=== PATIENT | female | born 1940 | race Caucasian/White ===

== ENCOUNTER 2017-07-21 13:12 | Observation (INO) ==
[2017-07-21] MEDS ORDERED: SODIUM CHLORIDE 0.9% 1,000 ML IV STA (13:36)
--- NOTE | 2017-07-21 13:55 | XRay Report ---
Portable chest. Indication: Shortness of breath. Comparison: October 18, 2015. The heart is normal in size. There is calcific plaque present within the aortic knob. The pulmonary vasculature is normal. The lung arita are clear. With peak hardware is present in the left humerus. Healed rib fractures are noted on the right. Impression: No acute abnormality. PROCEDURE INTERPRETED AT [facility] DEPARTMENT OF RADIOLOGY Final Report Signed by: Dr. Princess Catalan
[2017-07-21 14:07] LABS: Basophils # 0.1 10*3/uL (0.0-0.2); Basophils % 0.7 % (0.0-0.8); Eosinophils # 0.1 10*3/uL (0.0-0.87); Eosinophils % 0.7 % (0.00-10.9); Hematocrit 28.4 VOL% (35.7-47.0); Hemoglobin 8.9 GM/DL (12.0-16.0); Immature Granulocytes % 0.4 %; Immature Granulocytes Absolute 0.03 #; Lymphocytes # 0.9 10*3/uL (1.4-4.0); Lymphocytes % 12.4 % (21.3-54.2); Mean Corpuscular HGB Conc 31.3 GM/DL (32-36); Mean Corpuscular Hemoglobin 27 PG (27-34); Mean Corpuscular Volume 85.3 FL (87-102); Mean Platelet Volume 10.6 FL (9.6-12.0); Monocytes # 0.8 10*3/uL (0.11-0.8); Monocytes % 11.2 % (1.7-12.7); Neutrophils # 5.6 10*3/uL (1.4-7.4); Neutrophils % 74.6 % (38.7-73.9); Platelet Count 209 T/CUMM (130-400); Red Blood Count 3.33 MC/CUMM (3.8-5.5); Red Cell Distribution Width 15.5 % (9.3-17.3); White Blood Count 7.5 T/CUMM (4-12)
[2017-07-21 14:14] LABS: PT Patient Result 10.2 SECS
--- NOTE | 2017-07-21 14:24 | EKG Report ---
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
[2017-07-21 14:37] LABS: Albumin 3.8 G/DL (3.4-5.0); Bilirubin,Total 0.8 MG/DL (0.2-1.0); Magnesium 1.8 MG/DL (1.8-2.4); Osmolality,Calculated 275.5 MOS/KG (273-304); Potassium 3.4 MMOL/L (3.5-5.1); Total Protein 6.7 G/DL (6.4-8.3); Troponin I Only 0.023 NG/ML (0.00-0.045)
[2017-07-21] MEDS ORDERED: ACETAMINOPHEN 325 MG TABLET PO PRN (14:52)
[2017-07-21] MEDS ORDERED: ONDANSETRON 4 MG/2 ML VIAL IV PRN (14:52)
[2017-07-21] MEDS ORDERED: SODIUM CHLORIDE 0.9% 1,000 ML IV SCH (15:00)
--- NOTE | 2017-07-21 15:01 | Emergency Department Note ---
Radha Shipman Brittany, am scribing for, and in the presence of, Reginald Herman MD 13:52. Virgil Shipman Phillip K, MD, personally performed the services described in this documentation, ascribed by Eloisa Garcia in my presence, and it is both accurate and complete [id number] . Arrival - Arrival Chief Complaint: Arrhythmia/Palpitations ED Nursing Triage Note: c/o Having increase heart rate - that started apx. 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 1130 , states she was in the kitchen cooking when this started., denies nasuea., denies having SOB., + diaphresis Mode of Arrival: Stretcher Limitations: No Limitations Source: Patient - History of Present Illness HPI Narrative: This is a 77 y/o white female,who presents to the ED with c/o SOB which started yesterday. She states yesterday after a meeting she became SOB. She denies any CP at that time. She notes once she got home the SOB resolved. She reports earlier today she became SOB again. She notes diaphoresis today. She denies a cough. She denies a fever. She notes 4 days ago, she noticed fresh blood in her stool and then the next days she noticed dark blood in her stool. She denies any abdominal pain. Pt has no other complaints/pain in the ED at this time. Pt has a PMhx asthma, chronic bronchitis, bladder problems, and ovarian cancer. Pt has had an eye surgery, appendectomy, orthopedic sugery, hysterectomy, and gynecological surgery. Pt denies a family medical hx. Pt is a former smoker and drinks occasionally. Onset (ago): day(s) (Started yesterday) Consistency: constant Severity: moderate Allergies/Adverse Reactions: Allergies Allergy/AdvReac Type Severity Reaction Status Date / Time codeine Allergy ITCHING Verified 08/02/15 10:57 Home Medications: Home Medications Medication Instructions Recorded Confirmed Type Albuterol Sulfate [Proair HFA] 2 puffs INH BID PRN 08/02/15 10/18/15 History Losartan [Cozaar] 25 mg PO DAILY #90 tablet 10/20/15 Rx Magnesium Chloride [Slow Mag] 64 mg PO DAILY #90 tablet 10/20/15 Rx Review of System - Review of System 12 point system: reviewed and no additional remarkable complaints except as stated - Review of System Constitutional: Present: diaphoresis. Absent: fever Respiratory: Absent: cough Cardiovascular: Present: chest pain, other (Tachycardia ). Absent: dyspnea on exertion Gastrointestinal: Present: hematochezia Medical,Surgical,& Family Hx - Medical History Neurology: No history of: Seizures Respiratory: History of: Asthma, Bronchitis (Chronic ) Genitourinary: History of: Bladder Problem (bladder sling) Musculoskeletal: History of: Musculoskeletal Problems (fx left humerus, fx foot) Reproductive: History of: Reproductive Problems (OVARIAN CANCER) Other: History of: Cancer (ovarian) - Surgical History HEENT Surgeries: Surgical HX of: Eye Surgery (cataract) Abdominal Surgeries: Surgical HX of: Appendectomy Reproductive Surgeries: Surgical HX of;: Gynecologic Surgery (ovarian ca), Hysterectomy Orthopedic Surgeries: Surgical HX of;: Orthopedic Surgery (orif left humerus 04/12, bunionectomy) - Family History Family History: Reports;: Family Heart Disease (father) - Social History Smoking Status: Former smoker Frequency of Alcohol Use: Occasionally Type of Drug Use: None Exam Vital Signs: Vital Signs Temperature 98.9 F 07/21/17 13:16 Pulse Rate 131 H 07/21/17 13:22 Respiratory Rate 20 07/21/17 13:22 Blood Pressure 137/76 07/21/17 13:22 O2 Sat by Pulse Oximetry 99 07/21/17 13:22 - General General appearance: alert, in no apparent distress - Head Head exam: Present: atraumatic, normocephalic, normal inspection - Eye Eye exam: Present: PERRL, EOMI. Absent: normal appearance (Pale conjunctiva), nystagmus, miosis, mydriasis - ENT ENT exam: Present: other (Pale mucous membranes) - Neck Neck exam: Present: full ROM, trachea midline. Absent: tenderness - Chest Chest inspection: Present: symmetric chest wall rise. Absent: tenderness - Respiratory Respiratory exam: Present: normal lung sounds bilaterally. Absent: rales, respiratory distress, rhonchi, stridor, wheezes - Cardiovascular Cardiovascular exam: Present: tachycardia, irregular rhythm, normal heart sounds. Absent: regular rate, normal rhythm, murmur, rubs, gallop, clicks, JVD - Abdominal Exam Abdominal exam: Present: soft, normal bowel sounds. Absent: tenderness - Rectal Exam Rectal exam: Present: heme (+) stool, other (Yellow stool ) - Extremities Exam Extremities exam: Present: normal inspection, full ROM, normal capillary refill. Absent: tenderness, pedal edema - Back Exam Back exam: Present: normal inspection, full ROM. Absent: tenderness, muscle spasm, rashes - Neurological Exam Neurological exam: Present: alert, oriented X3, CN II-XII intact. Absent: motor sensory deficit - Psychiatric Psychiatric exam: Present: normal affect, normal mood. Absent: depressed, agitated, anxious, flat affect - Skin Skin exam: Present: warm, dry, intact, normal color. Absent: rash, cyanosis, diaphoresis Course Course Narrative: Patient discussed with Dr. Marcano Results - Labs CBC & BMP: 07/21/17 13:55 07/21/17 13:55 Lab Results: I have reviewed the patients labs Labs: Laboratory Tests 07/21/17 07/21/17 07/21/17 13:55 13:55 13:55 WBC 7.5 RBC 3.33 L Hgb 8.9 L Hct 28.4 L MCV 85.3 L MCH 27 MCHC 31.3 L RDW 15.5 Plt Count 209 MPV 10.6 Neut % (Auto) 74.6 H Lymph % (Auto) 12.4 L [place] % (Auto) 11.2 Eos % (Auto) 0.7 Baso % (Auto) 0.7 Neut # (Auto) 5.6 Lymph # (Auto) 0.9 L [place] # (Auto) 0.8 Eos # (Auto) 0.1 Baso # (Auto) 0.1 Immature Gran % 0.4 Nucleated RBC % 0.0 Immature Gran # 0.03 Nucleated RBCs # 0.00 Immature Plt Fraction 0.0 INR 1.0 PT Patient/Control Mix 10.2 Sodium 139 Potassium 3.4 L Chloride 102 Carbon Dioxide 29 Anion Gap 11.4 BUN 10 Creatinine 0.60 GFR Calculation 94 BUN/Creatinine Ratio 16.00 Glucose 104 Calculated Osmolality 275.5 Calcium 9.0 Magnesium 1.8 Total Bilirubin 0.80 AST 18 ALT 22 Alkaline Phosphatase 99 Troponin I 0.023 Total Protein 6.7 Albumin 3.8 Globulin 2.9 Albumin/Globulin Ratio 1.3 - EKG EKG results: interpreted by HO (Sinus tachycardia) - Diagnostic Findings Procedure: Chest x-ray: report reviewed by me (No acute abnormality.) Disposition Clinical Impression: Lower GI bleed, Palpitations, Sinus tachycardia Case discussed with: patient, patient's family Disposition: Still a Patient Additional Instructions: Admit to Dr. Yip.
--- NOTE | 2017-07-21 15:49 | Family Practice History&Phys ---
Assessment and Plan (1) Palpitations Status: Acute Assessment and plan: Will add metoprolol, add thyroid labs, lipid panel, repeat EKG in a.m., cardiology consulted 2. Chronic bronchitis, asthma, continue duo nebs, oxygen 2 L nasal cannula 3. Lower GI bleed, anemia, will get stool tests for occult blood, follow H&H, consult GI 4. Alcohol dependence, advised patient to quit drinking alcohol Current Visit: Yes (2) Chronic bronchitis Status: Chronic Current Visit: Yes (3) Asthma Status: Chronic Current Visit: Yes (4) Hypertension Status: Chronic Current Visit: Yes (5) Lower GI bleed Status: Acute Current Visit: Yes (6) EtOH dependence Status: Chronic Current Visit: Yes History of Present Illness Chief complaint: Palpitations with chest discomfort, shortness of breath History of present illness: Ms. Candelaria is a 77 year old female PCP: Dr. Yip pt admitted for palpitations, new onset, with chest discomfort, shortness of breath Has h/o asthma, chronic bronchitis currently using only nebulizations, patient also mentions has history of diverticular disease, hemorrhoids,h/o ovarian cancer , History obtained from the patient, yesterday patient was in a meeting, felt stressed, started to have chest discomfort yesterday at around 12 PM which felt more like heaviness, and felt palpitations, lasted from 12 to 4 PM, which went away by rest.Next episode happened this a.m. from 11:30 AM, the episode was with shortness of breath, palpitations with diaphoresis for which she was brought to the ER, it was noted she was having near 180-200 Max HR by EMS, ? SVT, no history of chest injury or trauma. Last episode of bronchitis spell in May 2017 for which she received antibiotics. Has noted blood in stool last week, 1, and then dark stool 1 on Sunday, patient has history of diverticular disease, hemorrhoids.last c-scope Jul 2014, left colon diverticulosis, cecal malformations, hemorrhoids, Patient is an ex-smoker, quit in 1998. Patient drinks alcohol almost every day, last drink yesterday, Gin, approximately 4 ounces, Home Medications Medication Instructions Recorded Confirmed Type Albuterol Sulfate [Proair HFA] 2 puffs INH BID PRN 08/02/15 07/21/17 History Magnesium Chloride [Slow Mag] 64 mg PO DAILY #90 tablet 10/20/15 07/21/17 Rx Albuterol/Ipratropium Neb [Duoneb] 3 ml RESP TX RT BID 07/21/17 07/21/17 History Ascorbic Acid [Vitamin C] 1,000 mg PO DAILY 07/21/17 07/21/17 History Krill/[place]-3/Dha/Epa/Lipids 1 each PO DAILY 07/21/17 07/21/17 History [Krill Oil 300 mg Softgel] Multivit-Min/FA/Lutein/Zeaxant 1 each PO DAILY 07/21/17 07/21/17 History [Icaps Mv Tablet] Allergies Allergy/AdvReac Type Severity Reaction Status Date / Time codeine Allergy ITCHING Verified 08/02/15 10:57 - Constitutional Constitutional: Present: as per HPI - EENT Eyes: Present: as per HPI Nose, mouth and throat: Present: as per HPI - Cardiovascular Cardiovascular: Present: as per HPI - Respiratory Respiratory: Present: as per HPI - Gastrointestinal Gastrointestinal: Present: as per HPI - Genitourinary Genitourinary: Present: as per HPI - Musculoskeletal Musculoskeletal: Present: as per HPI - Neurological Neurological: Present: as per HPI - Psychiatric Psychiatric: Present: as per HPI - Endocrine Endocrine: Present: as per HPI - Hematologic/Lymphatic Hematologic/Lymphatic: Present: as per HPI Medical,Surgical,& Family Hx - Medical History Neurology: No history of: Seizures Respiratory: History of: Asthma, Bronchitis (Chronic ) Genitourinary: History of: Bladder Problem (bladder sling) Musculoskeletal: History of: Musculoskeletal Problems (fx left humerus, fx foot) Reproductive: History of: Reproductive Problems (OVARIAN CANCER) Other: History of: Cancer (ovarian) - Surgical History HEENT Surgeries: Surgical HX of: Eye Surgery (cataract) Abdominal Surgeries: Surgical HX of: Appendectomy Reproductive Surgeries: Surgical HX of;: Gynecologic Surgery (ovarian ca), Hysterectomy Orthopedic Surgeries: Surgical HX of;: Orthopedic Surgery (orif left humerus 04/12, bunionectomy) - Family History Family History: Reports;: Family Heart Disease (father) - Social History Smoking Status: Former smoker Frequency of Alcohol Use: Occasionally Type of Drug Use: None Exam - Constitutional Vitals: Period Temp Pulse Resp BP Sys/Lomeli Pulse Ox Last 24 Hr 98.9 F 111-131 16-20 115-137/67-86 95-100 Exam: Examination: patient examined in the ER GENERAL: Alert, oriented, in no acute distress , female pt, sitting up ,with O2 NC 2 lit HEENT: normal, d hearing,PERRLA. EOMI. Mucous membranes are moist. NECK: Neck is supple. No JVD. No carotid bruit. No thyromegaly. CVS: tachycardic HR 116/min, chest discomfort not reproducible at the time of exam,Regular rhythm. S1 and S2 are normal. RESPIRATORY: Clear to ausculation bilaterally , No wheezes, rales or rhonchi. ABDOMEN: Soft and nontender. Bowel sounds are present. No hepatosplenomegaly. EXT: No edema. 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 Motor strength normal. Results - Labs CBC & BMP: 07/21/17 13:55 07/21/17 13:55 Lab Results: I have reviewed the past 24 hour labs - EKG EKG shows: tachycardia - Diagnostic Findings Procedure: Chest x-ray: image reviewed by me, report reviewed by me
[2017-07-21] MEDS ORDERED: ALBUTEROL/IPRATROPIUM 3 ML NEB RESP TX PRN (20:00)
[2017-07-21] MEDS ORDERED: SODIUM CHLOR 0.9% KCL 20 MEQ 20 MEQ/1,000 ML BAG IV SCH (21:00)
[2017-07-21] MEDS: METOPROLOL TARTRATE 25 MG TABLET PO SCH (21:16)
[2017-07-21] MEDS: DOCUSATE SODIUM 100 MG CAPSULE PO SCH (21:16)
[2017-07-21 23:01] LABS: Hematocrit 27.3 VOL% (35.7-47.0); Hemoglobin 8.5 GM/DL (12.0-16.0)
[2017-07-22 04:31] LABS: Basophils # 0.1 10*3/uL (0.0-0.2); Basophils % 0.7 % (0.0-0.8); Eosinophils # 0.2 10*3/uL (0.0-0.87); Eosinophils % 2.9 % (0.00-10.9); Hematocrit 28.3 VOL% (35.7-47.0); Hemoglobin 8.6 GM/DL (12.0-16.0); Immature Granulocytes % 0.4 %; Immature Granulocytes Absolute 0.03 #; Lymphocytes # 1.5 10*3/uL (1.4-4.0); Lymphocytes % 20.9 % (21.3-54.2); Mean Corpuscular HGB Conc 30.4 GM/DL (32-36); Mean Corpuscular Hemoglobin 26 PG (27-34); Mean Corpuscular Volume 86.8 FL (87-102); Mean Platelet Volume 11.4 FL (9.6-12.0); Monocytes # 0.9 10*3/uL (0.11-0.8); Monocytes % 12.7 % (1.7-12.7); Neutrophils # 4.5 10*3/uL (1.4-7.4); Neutrophils % 62.4 % (38.7-73.9); Platelet Count 229 T/CUMM (130-400); Red Blood Count 3.26 MC/CUMM (3.8-5.5); Red Cell Distribution Width 15.6 % (9.3-17.3); White Blood Count 7.2 T/CUMM (4-12)
[2017-07-22 04:33] LABS: Hematocrit 28.3 VOL% (35.7-47.0); Hemoglobin 8.7 GM/DL (12.0-16.0)
[2017-07-22 04:59] LABS: Calcium 8.4 MG/DL (8.5-10.1); Osmolality,Calculated 279.1 MOS/KG (273-304); Potassium 3.7 MMOL/L (3.5-5.1)
[2017-07-22 05:07] LABS: Risk Ratio 2.28; VLDL CHOLESTEROL 19.4 MG/DL
[2017-07-22 05:12] LABS: Free T4 (Free Thyroxine) 1.02 NG/DL (0.76-1.46); Thyroid Stimulating Hormone 3.21 uIU/ml (0.358-3.74)
--- NOTE | 2017-07-22 07:41 | EKG Report ---
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
--- NOTE | 2017-07-22 08:47 | Gastrointestinal Consult Note ---
Assessment and Plan - Time spent with patient Time spent with patient: Greater than 30 minutes (1) Lower gastrointestinal hemorrhage Status: Acute Current Visit: No (2) Anemia Status: Acute Current Visit: Yes (3) Other specified counseling Status: Acute Current Visit: Yes History of Present Illness History of present illness: Ms. Candelaria is a 77 year old female Home Medications Medication Instructions Recorded Confirmed Type Albuterol Sulfate [Proair HFA] 2 puffs INH BID PRN 08/02/15 07/21/17 History Magnesium Chloride [Slow Mag] 64 mg PO DAILY #90 tablet 10/20/15 07/21/17 Rx Albuterol/Ipratropium Neb [Duoneb] 3 ml RESP TX RT BID 07/21/17 07/21/17 History Ascorbic Acid [Vitamin C] 1,000 mg PO DAILY 07/21/17 07/21/17 History Krill/[place]-3/Dha/Epa/Lipids 1 each PO DAILY 07/21/17 07/21/17 History [Krill Oil 300 mg Softgel] Multivit-Min/FA/Lutein/Zeaxant 1 each PO DAILY 07/21/17 07/21/17 History [Icaps Mv Tablet] Allergies Allergy/AdvReac Type Severity Reaction Status Date / Time codeine Allergy ITCHING Verified 08/02/15 10:57 Medical,Surgical,& Family Hx - Medical History Neurology: No history of: Seizures Respiratory: History of: Asthma, Bronchitis (Chronic ) Genitourinary: History of: Bladder Problem (bladder sling) Gastrointestinal: History of: Diverticulitis/ Diverticulosis, Hemorrhoids Musculoskeletal: History of: Musculoskeletal Problems (fx left humerus, fx foot) Reproductive: History of: Reproductive Problems (OVARIAN CANCER) Other: History of: Cancer (ovarian) - Surgical History Thoracic Surgeries: Patient denies;: Organ Transplant HEENT Surgeries: Surgical HX of: Eye Surgery (cataract) Abdominal Surgeries: Surgical HX of: Appendectomy Reproductive Surgeries: Surgical HX of;: Gynecologic Surgery (ovarian ca), Hysterectomy Orthopedic Surgeries: Surgical HX of;: Orthopedic Surgery (orif left humerus 04/12, bunionectomy) - Family History Family History: Reports;: Family Heart Disease (father), Family Hypertension ( father, mother, brother), Family Stroke (mother) - Social History Smoking Status: Former smoker Frequency of Alcohol Use: Occasionally Type of Drug Use: None Exam - Constitutional Vitals: Period Temp Pulse Resp BP Sys/Lomeli Pulse Ox Last 24 Hr 96.8 F-99.9 F 90-131 16-20 115-144/67-86 95-100 Results - Labs CBC & BMP: 07/22/17 03:12 07/22/17 03:12 Note Addendum: PLEASE NOTE -- automatic citation of patient information is unavoidable in this electronic note. I have made a reasonable effort to review the information cited , but it is not a part of my evaluation, impression, or recommendation unless specifically discussed in the dictated text that follows. As well, voice recognition software was used in the creation of this clinical note. Reasonable effort was made to identify and correct gross errors. Despite proofreading, errors in beef grader may be present, including nonsense verbiage at times. If you encounter such an error, please contact me at for discussion and correction. -- Jojo Chief complaint: anemia History of present illness: This is a new patient, a 77-year-old female seen by consultation for evaluation of unexplained anemia the setting of dark stool. The patient is admitted to the telemetry floor under the care of Dr. Andres Yip with a primary diagnosis of palpitations. The patient was admitted through the emergency department with primary complaint of chest heaviness and palpitations. Evaluation at that time revealed tachycardia and normocytic anemia. She was admitted for rate control and monitoring. Blood counts have remained stable. One bowel movement was noted overnight with no overt blood. Patient reports to episodes of overt bleeding over this past week with bright red blood on Sunday or Sunday and darker blood later in the week. She experienced no abdominal pain, neither earlier in the week, nor with her more acute presentation and palpitations last evening. She reports one prior episode of gastrointestinal bleeding, about three years ago, thought to be due to "a burst blood vessel." She was seen by Dr. Garcia at that time and colonoscopy was accomplished. At present, she's feeling comfortable with no abdominal discomfort. Patient denies fever, chills, night sweats, rigors, headache, dizziness, neck pain, visual changes, redness of the eyes, dysphagia, odynophagia, difficulty chewing, abdominal pain, weight loss, nausea, vomiting, regurgitation, hematemesis, diarrhea, proctalgia, constipation, dysuria, skin changes, temperature regulation issues, flushing, easy bleeding/bruising, musculoskeletal pain, mental status change, numbness/weakness in the extremities , yellowing of the eyes/skin, cutaneous eruptions, family history of gastrointestinal cancer and colon polyps, and other complaints in general. Review of systems: 12 point review of systems was negative except as documented above. Outpatient medications: multivitamin, magnesium chloride, vitamin C, albuterol, Duoneb Inpatient medications: Tylenol, Duoneb, Colace, Lopressor, Zofran, Protonix, normal saline with potassium infusion Past Medical History: asthma, bronchitis, bladder sling, ovarian cancer Social history: former tobacco. Daily alcohol Family history: no gastrointestinal cancers Physical examination: Vital Signs: Current vital signs reviewed and documented above. General Appearance: sitting up in bed. Comfortable. No apparent distress. Head: Normocephalic. Neck: Palpation of the neck revealed no abnormalities. Eyes: No scleral icterus. No scleral injection. No conjunctival pallor. Oral Cavity: Odor of breath was normal. No drooling was observed. Lips showed no abnormalities. Floor of the mouth showed no abnormalities. Pharynx: Oropharynx was normal. Lungs: Respiration rhythm and depth was normal. Cardiovascular: Heart rate and rhythm were normal. Abdomen: abdomen was not distended. Abdominal palpation revealed no tenderness and no hepatosplenomegaly. Ascites was not discovered. Abdominal auscultation revealed positive bowel sounds. Musculoskeletal System: Musculoskeletal system was grossly normal. Neurological: level of consciousness was normal. Speech was normal. Skin: General appearance was normal. Color and pigmentation were normal. No skin lesions. Laboratory: hemoglobin 8.7, MCV 87, platelets 229, INR 1.0, ALT 22, AST 18, total bilirubin 0.8, alkaline phosphatase 99, albumin 3.8, total protein 6.7 Radiology: reviewed Impressions: #1. Hematochezia -- the differential diagnosis includes diverticular bleeding, infectious/inflammatory enterocolitis, arteriovenous malformation, hemorrhoidal bleeding, colon polyps (including cancer), and upper gastrointestinal bleeding. I recommend serial hemoglobin and hematocrit monitoring with transfusion as indicated. I recommend aggressive crystalloid resuscitation as indicated. I recommend intravenous proton pump inhibitor. Patient will need colonoscopy with timing dependent on clinical progress. If bleeding continues, this will likely need to be done during this admission. If not, we could consider outpatient colonoscopy once patient is adequately resuscitated and transfused. #2. Anemia -- the patient's blood counts are stable for the moment. This will need to be followed both during her admission and after discharge until normal. #3. Other specified counseling -- The patient was seen for greater than 30 minutes. The patient was counseled for greater than 50% of this time regarding differential diagnosis, likely diagnosis, diagnostic and therapeutic alternatives, risks/benefits/alternatives of medications and procedures, and plan of care generally. The patient expressed understanding and wishes to proceed. Recommendations: -- aggressive crystalloid resuscitation -- transfusion as indicated -- serial hemoglobin and hematocrit monitoring -- colonoscopy with timing based on clinical progress -- monitoring and management of anemia per-se both during the admission and after discharge -- thank you for consultation. Dr. Garcia will assume G.I. care for this patient tomorrow.
--- NOTE | 2017-07-22 09:32 | Family Practice Progress Note ---
Family Practice - PN: Subj Interval history: PCP: Dr. 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, pt admitted for palpitations, new onset, with chest discomfort, shortness of breath, anemia/lower GI bleed Has h/o asthma, chronic bronchitis currently using only nebulizations, patient also mentions has history of diverticular disease, hemorrhoids,h/o ovarian cancer , pt seen and examined on telemetry floor , sitting up in bed, feeling better than yesterday, O2 NC 2lit, no fever , nausea, vomiting , headaches or dizziness, No overnight events reported by the nurse, Exam (Progress Note) - Constitutional Vitals: Period Temp Pulse Resp BP Sys/Lomeli Pulse Ox Last 24 Hr 96.8 F-99.9 F 90-131 16-20 115-144/67-86 95-100 Exam: Examination: GENERAL: Alert, oriented, in no acute distress , female pt, sitting up ,with O2 NC 2 lit HEENT: normal, d hearing,PERRLA. EOMI. Mucous membranes are moist. NECK: Neck is supple. No JVD. No carotid bruit. No thyromegaly. CVS: Regular rate and rhythm. S1 and S2 are normal. RESPIRATORY: Clear to ausculation bilaterally , No wheezes, rales or rhonchi. ABDOMEN: Soft and nontender. Bowel sounds are present. No hepatosplenomegaly. EXT: No edema. 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 Motor strength normal. Results - Labs CBC & BMP: 07/22/17 10:51 07/22/17 03:12 Lab Results: I have reviewed the past 24 hour labs Assessment and Plan (1) Palpitations Status: Acute Assessment and plan: , Chest heaviness improving, follow cardiology recommendations. 2. Chronic bronchitis, asthma, continue duo nebs, oxygen 2 L nasal cannula 3. Lower GI bleed, anemia, follow H&H, follow GI recommendations Current Visit: Yes (2) Chronic bronchitis Status: Chronic Current Visit: Yes (3) Asthma Status: Chronic Current Visit: Yes (4) Hypertension Status: Chronic Current Visit: Yes (5) Lower GI bleed Status: Acute Current Visit: Yes (6) EtOH dependence Status: Chronic Current Visit: Yes
[2017-07-22] MEDS: DOCUSATE SODIUM 100 MG CAPSULE PO SCH ×2 (09:53→21:05)
[2017-07-22] MEDS: METOPROLOL TARTRATE 25 MG TABLET PO SCH (09:53)
[2017-07-22] MEDS: PANTOPRAZOLE 40 MG TABLET PO SCH (09:53)
--- NOTE | 2017-07-22 10:46 | Cardiology Consult Note ---
Assessment and Plan (1) Chest heaviness Status: Acute Assessment and plan: 1. 77-year-old remote smoker with remote history of ovarian cancer, and EtOH according to the chart, who had significant diverticular bleed late 2014, and had some transient bright red blood and melena per rectum over 4 days ago (none since) presents with prolonged chest pressure rating to her left shoulder associated with shortness of breath and palpitations with sinus tachycardia on arrival (heart rate in the 130s although she reports it was nearly 200 in the ambulance) 2. Try to obtain EMS records to see if there was any rhythm documented; she may well just had sinus tachycardia as he is gradually diminished into the 80s ( sinus) 3. No acute EKG changes and her initial troponin was negative 4. Family history of CAD as her mother had angina and her father of heart failure and had a stroke 5. Asthma with prolonged expiratory phase/slight wheezing on my examination; will change metoprolol to low-dose Bystolic 2.5 mg daily. 6. Check echocardiogram to evaluate for structural heart disease 7. Hematocrit in the 28% range but is unchanged suggesting she had some bleeding 5 days ago which has not recurred. 8. Follow her clinically and consider outpatient stress test. She clearly has significant asthma and GI bleed, so would await GI workup prior to any invasive cardiac evaluation, she may well not tolerate dual antiplatelet therapy indicates that she did have significant disease. Addendum: Echocardiogram showed EF 65% with 1+ LVH and no significant valvular disease/normal pulmonary pressures.. Current Visit: Yes (2) Anemia Status: Acute Current Visit: Yes (3) Lower gastrointestinal hemorrhage Status: Acute Current Visit: No (4) Palpitations Status: Acute Current Visit: Yes History of Present Illness - Consult Narrative History of present illness: Ms. Candealria is a 77 year old female with no previous cardiac problems. She reports she had a stress test 10 years ago for a surgery that was okay, was not prompted by symptoms. She had a significant diverticular bleed late 2014. She reports having a mild amount of bright red blood per rectum about a week ago which she thought was related to hemorrhoids. She reported having some black stool a day later which was not a great amount. It then normalized and she has not had any for the last 4-5 days. She reported a 2-3 hour episode of modest chest pressure while leaving a meeting nearly a week ago. She had a recurrence associated with palpitations when she presented yesterday, but that it was also associated with shortness of breath. She reports the surgical nurse practitioner told her heart rate was nearly 200, we have no documentation of this. Her initial EKG shows heart rate in the 130s with sinus versus ectopic atrial rhythm. It appears that it was sinus as she is now in the upper 80s in sinus with a similar P-wave pattern. Her initial troponin was negative. She has asthma and had improvement with 2 MDIs that she uses there were recommended by Dr. Overton. She reports that up day or 2 ago she did some modest work taking the garbage out etc. and had no chest discomfort with that. CC: Andres Yip, DO - Home Medications and Allergies Home Medications: Home Medications Medication Instructions Recorded Confirmed Type Albuterol Sulfate [Proair HFA] 2 puffs INH BID PRN 08/02/15 07/21/17 History Magnesium Chloride [Slow Mag] 64 mg PO DAILY #90 tablet 10/20/15 07/21/17 Rx Albuterol/Ipratropium Neb [Duoneb] 3 ml RESP TX RT BID 07/21/17 07/21/17 History Ascorbic Acid [Vitamin C] 1,000 mg PO DAILY 07/21/17 07/21/17 History Krill/[place]-3/Dha/Epa/Lipids 1 each PO DAILY 07/21/17 07/21/17 History [Krill Oil 300 mg Softgel] Multivit-Min/FA/Lutein/Zeaxant 1 each PO DAILY 07/21/17 07/21/17 History [Icaps Mv Tablet] Allergies/Adverse Reactions: Allergies Allergy/AdvReac Type Severity Reaction Status Date / Time codeine Allergy ITCHING Verified 08/02/15 10:57 Medical,Surgical,& Family Hx - Medical History Neurology: No history of: Seizures Respiratory: History of: Asthma, Bronchitis (Chronic ) Genitourinary: History of: Bladder Problem (bladder sling) Gastrointestinal: History of: Diverticulitis/ Diverticulosis, Hemorrhoids Musculoskeletal: History of: Musculoskeletal Problems (fx left humerus, fx foot) Reproductive: History of: Reproductive Problems (OVARIAN CANCER) Other: History of: Cancer (ovarian) - Surgical History Thoracic Surgeries: Patient denies;: Organ Transplant HEENT Surgeries: Surgical HX of: Eye Surgery (cataract) Abdominal Surgeries: Surgical HX of: Appendectomy Reproductive Surgeries: Surgical HX of;: Gynecologic Surgery (ovarian ca), Hysterectomy Orthopedic Surgeries: Surgical HX of;: Orthopedic Surgery (orif left humerus 04/12, bunionectomy) - Family History Family History: Reports;: Family Heart Disease (father), Family Hypertension ( father, mother, brother), Family Stroke (mother) - Social History Smoking Status: Former smoker Frequency of Alcohol Use: Occasionally Type of Drug Use: None Physical Examination Vital Signs Temp Pulse Resp BP Pulse Ox 98.9 F 129 H 20 137/76 95 07/21/17 13:16 07/21/17 13:16 07/21/17 13:16 07/21/17 13:16 07/21/17 13:16 Result/EKG - Labs CBC & BMP: 07/22/17 10:51 07/22/17 03:12 Labs: Laboratory Results - last 24 hr 07/21/17 07/21/17 07/21/17 13:55 13:55 13:55 WBC 7.5 RBC 3.33 L Hgb 8.9 L Hct 28.4 L MCV 85.3 L MCH 27 MCHC 31.3 L RDW 15.5 Plt Count 209 MPV 10.6 Neut % (Auto) 74.6 H Lymph % (Auto) 12.4 L [place] % (Auto) 11.2 Eos % (Auto) 0.7 Baso % (Auto) 0.7 Neut # (Auto) 5.6 Lymph # (Auto) 0.9 L [place] # (Auto) 0.8 Eos # (Auto) 0.1 Baso # (Auto) 0.1 Immature Gran % 0.4 Nucleated RBC % 0.0 Immature Gran # 0.03 Nucleated RBCs # 0.00 Immature Plt Fraction 0.0 INR 1.0 PT Patient/Control Mix 10.2 Sodium 139 Potassium 3.4 L Chloride 102 Carbon Dioxide 29 Anion Gap 11.4 BUN 10 Creatinine 0.60 GFR Calculation 94 BUN/Creatinine Ratio 16.00 Glucose 104 Calculated Osmolality 275.5 Calcium 9.0 Magnesium 1.8 Total Bilirubin 0.80 AST 18 ALT 22 Alkaline Phosphatase 99 Troponin I 0.023 B-Natriuretic Peptide Total Protein 6.7 Albumin 3.8 Globulin 2.9 Albumin/Globulin Ratio 1.3 Triglycerides Cholesterol LDL Cholesterol VLDL Cholesterol HDL Cholesterol Heart Disease Risk Ratio Free T4 TSH 3rd Generation Blood Type Antibody Screen 07/21/17 07/21/17 07/22/17 13:55 22:52 03:12 WBC 7.2 RBC 3.26 L Hgb 8.5 L 8.6 L Hct 27.3 L 28.3 L MCV 86.8 L MCH 26 L MCHC 30.4 L RDW 15.6 Plt Count 229 MPV 11.4 Neut % (Auto) 62.4 Lymph % (Auto) 20.9 L [place] % (Auto) 12.7 Eos % (Auto) 2.9 Baso % (Auto) 0.7 Neut # (Auto) 4.5 Lymph # (Auto) 1.5 [place] # (Auto) 0.9 H Eos # (Auto) 0.2 Baso # (Auto) 0.1 Immature Gran % 0.4 Nucleated RBC % 0.0 Immature Gran # 0.03 Nucleated RBCs # 0.00 Immature Plt Fraction 0.0 INR PT Patient/Control Mix Sodium Potassium Chloride Carbon Dioxide Anion Gap BUN Creatinine GFR Calculation BUN/Creatinine Ratio Glucose Calculated Osmolality Calcium Magnesium Total Bilirubin AST ALT Alkaline Phosphatase Troponin I B-Natriuretic Peptide Total Protein Albumin Globulin Albumin/Globulin Ratio Triglycerides Cholesterol LDL Cholesterol VLDL Cholesterol HDL Cholesterol Heart Disease Risk Ratio Free T4 TSH 3rd Generation Blood Type O POSITIVE Antibody Screen Negative 07/22/17 07/22/17 07/22/17 03:12 03:12 03:12 WBC RBC Hgb 8.7 L Hct 28.3 L MCV MCH MCHC RDW Plt Count MPV Neut % (Auto) Lymph % (Auto) [place] % (Auto) Eos % (Auto) Baso % (Auto) Neut # (Auto) Lymph # (Auto) [place] # (Auto) Eos # (Auto) Baso # (Auto) Immature Gran % Nucleated RBC % Immature Gran # Nucleated RBCs # Immature Plt Fraction INR PT Patient/Control Mix Sodium 142 Potassium 3.7 Chloride 107 Carbon Dioxide 30 Anion Gap 8.7 BUN 5 L Creatinine 0.40 L GFR Calculation 110 BUN/Creatinine Ratio 12.00 Glucose 92 Calculated Osmolality 279.1 Calcium 8.4 L Magnesium 2.0 Total Bilirubin AST ALT Alkaline Phosphatase Troponin I B-Natriuretic Peptide Total Protein Albumin Globulin Albumin/Globulin Ratio Triglycerides Cholesterol LDL Cholesterol VLDL Cholesterol HDL Cholesterol Heart Disease Risk Ratio Free T4 1.02 TSH 3rd Generation 3.210 Blood Type Antibody Screen 07/22/17 07/22/17 03:12 03:12 WBC RBC Hgb Hct MCV MCH MCHC RDW Plt Count MPV Neut % (Auto) Lymph % (Auto) [place] % (Auto) Eos % (Auto) Baso % (Auto) Neut # (Auto) Lymph # (Auto) [place] # (Auto) Eos # (Auto) Baso # (Auto) Immature Gran % Nucleated RBC % Immature Gran # Nucleated RBCs # Immature Plt Fraction INR PT Patient/Control Mix Sodium Potassium Chloride Carbon Dioxide Anion Gap BUN Creatinine GFR Calculation BUN/Creatinine Ratio Glucose Calculated Osmolality Calcium Magnesium Total Bilirubin AST ALT Alkaline Phosphatase Troponin I B-Natriuretic Peptide 344 H Total Protein Albumin Globulin Albumin/Globulin Ratio Triglycerides 97 Cholesterol 246 H LDL Cholesterol 122.0 VLDL Cholesterol 19.4 HDL Cholesterol 108 H Heart Disease Risk Ratio 2.28 Free T4 TSH 3rd Generation Blood Type Antibody Screen
[2017-07-22] MEDS ORDERED: NEBIVOLOL 5 MG TABLET PO SCH (11:00)
[2017-07-22 11:05] LABS: Hematocrit 29.9 VOL% (35.7-47.0); Hemoglobin 9.1 GM/DL (12.0-16.0)
[2017-07-22] MEDS: ALBUTEROL/IPRATROPIUM 3 ML NEB RESP TX SCH ×2 (13:10→20:40)
--- NOTE | 2017-07-22 13:11 | ECHO Report ---
Swathi Candelaria Exam Date: 07/22/2017 11:36 Referring Physician: Technologist: Alaina Olson Age: 77 Ht (in): 67 Wt (lb): 166 Gender: F Exam Location: [facility] Echo Indications: chest heaviness, asthma, tachycardia, HTN, palp, anemia BP: 134 / 68 HR: 90 Rhythm: Sinus Technical Quality: IMPRESSIONS Normal chamber sizes 1+ concentric LVH Normal LV systolic function with ejection fraction estimated be 65% without segmental wall motion normality Aortic sclerosis without stenosis 1+ tricuspid regurgitation with RVSP 22 mmHg plus RAP MEASUREMENTS (Male / Female) Normal Values 2D ECHO LV Diastolic Diameter PLAX 4.4 cm 4.2 - 5.9 / 3.9 - 5.3 cm LV Systolic Diameter PLAX 2.6 cm LV Fractional Shortening PLAX 41.8 % IVS Diastolic Thickness 1.1 cm 0.6 - 1.0 / 0.6 - 0.9 cm LVPW Diastolic Thickness 1.2 cm 0.6 - 1.0 / 0.6 - 0.9 cm RV Internal Dim ED PLAX 2.8 cm Aortic Root Diameter 3.0 cm LA Systolic Diameter LX 3.3 cm 3.0 - 4.0 / 2.7 - 3.8 cm DOPPLER TR Peak Velocity 235.0 cm/s TR Peak Gradient 22.1 mmHg FINDINGS Left Ventricle Mildly increased septal wall thickness. Mildly increased posterior wall thickness. Normal left ventricular cavity size. Left ventricular ejection fraction is estimated a Right Ventricle Normal right ventricular size. Right Atrium Normal right atrial size. Left Atrium Normal left atrial size. Mitral Valve Morphologically normal mitral valve. Aortic Valve The aortic valve is trileaflet and has normal motion. Tricuspid Valve Morphologically normal tricuspid valve. Trace tricuspid valve regurgitation. Tricuspid regurgitation velocities suggest a PAP of 22.1 mmHg + RAP. Pulmonic Valve Morphologically normal pulmonic valve. Pericardium No pericardial effusion. Aorta Normal size aortic root and proximal ascending aorta. Valdez Campo (Electronically Signed) Final Date: 22 July 2017 13:11
[2017-07-22] MEDS: NEBIVOLOL 5 MG TABLET PO SCH (13:48)
[2017-07-22 15:52] LABS: Hematocrit 30.6 VOL% (35.7-47.0); Hemoglobin 8.9 GM/DL (12.0-16.0)
[2017-07-23] MEDS: ALBUTEROL/IPRATROPIUM 3 ML NEB RESP TX SCH ×4 (01:10→20:36)
[2017-07-23 05:14] LABS: Basophils # 0.1 10*3/uL (0.0-0.2); Eosinophils # 0.2 10*3/uL (0.0-0.87); Eosinophils % 3.1 % (0.00-10.9); Hemoglobin 7.7 GM/DL (12.0-16.0); Immature Granulocytes % 0.2 %; Immature Granulocytes Absolute 0.01 #; Lymphocytes # 1.4 10*3/uL (1.4-4.0); Lymphocytes % 27.5 % (21.3-54.2); Mean Corpuscular HGB Conc 29.6 GM/DL (32-36); Mean Corpuscular Hemoglobin 26 PG (27-34); Mean Corpuscular Volume 87.8 FL (87-102); Monocytes # 0.7 10*3/uL (0.11-0.8); Monocytes % 13.3 % (1.7-12.7); Neutrophils # 2.8 10*3/uL (1.4-7.4); Neutrophils % 54.9 % (38.7-73.9); Platelet Count 207 T/CUMM (130-400); Red Blood Count 2.96 MC/CUMM (3.8-5.5); Red Cell Distribution Width 15.6 % (9.3-17.3); White Blood Count 5.1 T/CUMM (4-12)
[2017-07-23 05:48] LABS: Calcium 8.4 MG/DL (8.5-10.1); Magnesium 1.9 MG/DL (1.8-2.4); Osmolality,Calculated 283.7 MOS/KG (273-304); Potassium 3.5 MMOL/L (3.5-5.1)
--- NOTE | 2017-07-23 07:28 | EKG Report ---
Stationary ECG Study [facility] Test Date: 07/23/2017 7:28:23 AM Pat Name: BRAYAN CEDENO Department: Room: 284 Gender: F Body Straightener: ADRIANA : 1940 Requested by: Valdez Thakkar Order Number: [id number] Reading MD: KENNEDY VELOZ Intervals [place] Rate: 89 P: -7 VT: 187 QRS: 67 QRSD: 81 T: 68 QT: 378 QTc: 425 Interpretive Statements SINUS RHYTHM Electronically Signed On 07-27-17 06:22:51 CDT by KENNEDY VELOZ [email or web address]
[2017-07-23] MEDS ORDERED: LIDOCAINE 2% 5 ML VIAL ONE (12:44)
[2017-07-23] MEDS ORDERED: PROPOFOL 200 MG/20 ML VIAL IV ONE (12:44)
--- NOTE | 2017-07-23 12:49 | History and Physical Update ---
History and Physical Update - Physical Exam Mental Status: alert and oriented Heart: regular rate and rhythm Lung: clear to auscultation Abdomen: within normal limits Vitals: within normal limits History and Physical Changes: 77-year-old female is admitted with recent weakness and chest discomfort. She has had some black stools as well as maroon hematochezia. She denies abdominal pain or nausea. She was anemic with hemoglobin of 8.7 on presentation.
--- NOTE | 2017-07-23 13:01 | Operative Note ---
Date of procedure: 07/23/17 Pre-op diagnosis: GI bleed with recent melena, anemia Procedure: Procedure: Esophagogastroduodenoscopy Brief clinical abstract: 77-year-old female is admitted with chest discomfort and recent weakness. She was noted to be anemic with hemoglobin 8.7 and has had some recent black and dark red stools. Indication for procedure: GI bleed with anemia Endoscopic findings:[After informed consent was obtained, the patient was placed in the left lateral decubitus position. The gastroscope was inserted in the upper esophagus under direct vision with no resistance encountered. Esophageal mucosa appeared normal down to the squamocolumnar junction with no varices seen. At the squamocolumnar junction, there was a moderately obstructive fibrous appearing stricture with no erosions or ulcerations. A small hiatal hernia is present just distal to this. The endoscope was advanced in the stomach which was carefully examined including retroflexed view of the cardia and fundus with no abnormality seen. The pyloric channel and duodenal bulb were normal. There was a punctate nonbleeding vascular malformation in the second portion of the duodenum. Ampulla had normal appearance. The endoscope was withdrawn and Bergeron dilator size 52 [place] inserted in the upper esophagus and advanced beyond the level of the GE junction with mild resistance encountered. The dilator was removed. No blood was noted on the dilator afterwards and she had no chest pain. She appeared to tolerate the procedure well. Impression: #1 distal esophageal stricture secondary to GERD-status post bougie dilation #2 small hiatal hernia #3 nonbleeding duodenal vascular malformation Recommendations: Patient will need colonoscopy. We will probably plan to do tomorrow if she agrees to proceed. Anesthesia: GETA (tiva) Surgeon / Physician: Juancarlos Garcia Estimated blood loss: none Specimens: none sent Condition: stable Disposition: post procedure unit Results - Labs CBC & BMP: 07/23/17 04:36 07/23/17 04:36 Discharge Plan - Discharge Medications No Action Albuterol Sulfate [Proair HFA] 2 puffs INH BID PRN PRN Reason: Shortness Of Breath Magnesium Chloride [Slow Mag] 64 mg PO DAILY #90 tablet Multivit-Min/FA/Lutein/Zeaxant [Icaps Mv Tablet] 1 each PO DAILY Krill/[place]-3/Dha/Epa/Lipids [Krill Oil 300 mg Softgel] 1 each PO DAILY Ascorbic Acid [Vitamin C] 1,000 mg PO DAILY Albuterol/Ipratropium Neb [Duoneb] 3 ml RESP TX RT BID - Follow Up or Referral - Forms/Instructions
--- NOTE | 2017-07-23 13:03 | Anesthesia Post-Op ---
Anesthesia Post OP - Post Ansesthetic Evaluation Patient seen in post op: Yes Resp: within normal limits CV: within normal limits Mental: within normal limits Temp: within normal limits [id number]-Ic-[id number]: within normal limits Nausea and Vomiting: within normal limits Pain: within normal limits
[2017-07-23] MEDS: PANTOPRAZOLE 40 MG TABLET PO SCH (14:46)
[2017-07-23] MEDS: NEBIVOLOL 5 MG TABLET PO SCH (14:47)
[2017-07-23] MEDS: DOCUSATE SODIUM 100 MG CAPSULE PO SCH ×2 (14:47→21:09)
[2017-07-23] MEDS ORDERED: MAGNESIUM CITRATE 300 ML BOTTLE PO ONE (17:26)
[2017-07-23] MEDS ORDERED: POLYETHYLENE GLYCOL POWDER 255 GM BOTTLE PO ONE (18:00)
--- NOTE | 2017-07-23 18:17 | Cardiology Progress Note ---
I, Peri Ambrocio, KAMILAH, am scribing for, and in the presence of, Raul Montano MD 18:15. Assessment and Plan - Time spent with patient Time spent with patient: Greater than 30 minutes (Record review, assessment, and documentation) (1) Anemia Status: Acute Assessment and plan: SEE PLAN LISTED BELOW Current Visit: Yes (2) Chest heaviness Status: Resolved Assessment and plan: SEE PLAN LISTED BELOW Current Visit: Yes (3) Lower GI bleed Status: Acute Assessment and plan: SEE PLAN LISTED BELOW Current Visit: Yes (4) Palpitations Status: Resolved Assessment and plan: SEE PLAN LISTED BELOW Current Visit: Yes (5) Hyperlipidemia Status: Chronic Assessment and plan: SEE PLAN LISTED BELOW Current Visit: Yes Cardiology - PN: Subj Interval history: 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 Campo SUMMARY: Ms. Candelaria is a 77-year-old with no prior cardiac history. She was admitted to the ER with complaints of shortness of breath, diaphoresis, and chest pain. ER record indicates the medic reports her heart rate was in the 200s upon arrival, no rhythm strip included in chart to document this. Tachycardia is resolved and she is now in sinus rhythm, rate in the 80s. She admits a stress test approximately 10 years ago prior to surgery that she reports was normal. She was found to be anemic, and GI has been consulted. It appears an EGD pending for today. Cardiac risk factors include advanced age, hyperlipidemia, history of smoker (quit in 1998, smoked on and off for 10 years). Consider outpatient stress test, as the patient has remained chest pain-free, no changes on EKG, and troponin negative. IMPRESSION AND PLAN: 1. ANEMIA -GI consulted and scope planned for today which is been carried out and colonoscopy planned for tomorrow. 2. CHEST PAIN -resolved, vital signs stable, no EKG changes, troponin negative. Chest pain likely cardiac. Unremarkable ECG and normal. 3. HYPERLIPIDEMIA -LDL 122, consider statin if not contraindicated, will await evaluation completion 4. PALPITATIONS - Beta dulce maria, SR, possbily sinus tachycardia. 5. LOWER GI BLEED - continue to monitor CBC, transfuse, GI managing. Patient personally reviewed and examined and chart reviewed. Discussed this case with TAHIRA Hooker and agree with evaluation and assessment. In summation and addition at the time of my dictation the patient has had their endoscopy and apparently underwent esophageal dilation for some esophageal stricture secondary to gastroesophageal reflux disease. No bleeding was found. Dr. Garcia plans on carrying out colonoscopy tomorrow. The patient's records from outside revealed that the patient was tachycardic and may be a sinus tachycardia versus atrial tachycardia. This could have been induced by physiologic stress or including the anemia. She has had no angina symptomatology. She does have the anemia and has findings consistent with microcytic hypochromic anemia. This evaluation be left up to the primary service. Certainly iron deficiency would be a etiology and await the rest of her GI evaluation. Her echocardiogram carried out yesterday was unremarkable with an ejection fraction 65% and mild left ventricular hypertrophy at worse in normal right- sided pressures. No real specific abnormalities noted. Exam (Progress Note) - Constitutional Vitals: Period Temp Pulse Resp BP Sys/Lomeli Pulse Ox Last 24 Hr 97.7 F-100.2 F 76-100 18-20 107-157/59-87 93-99 Exam: General: [Appears well with no apparent distress.] [Pleasant and cooperative. ] [Appears comfortable.] HEENT: [PERRL, normocephalic, atraumatic]. [Mucous membranes moist.] [No jaundice noted.] [Conjunctiva moist and clear, sclerae anicteric.] Neck: [No JVD/HJR, no thyromegaly or lymphadenopathy noted.] [ No carotid bruit appreciated.] Cardiac: [Regular rate and rhythm.] [No murmur rub or gallop.] [PMI is nondisplaced.] Lungs: [Clear to auscultation without accessory muscle use to assist the respiratory pattern.] [Oxygen in use via nasal cannula.] Abdomen: [Soft, bowel sounds normoactive.] [Nontender and nondistended.] [No abdominal bruit or thrill noted.] [No masses noted.] Musculoskeletal: [No fluid collection.] [Decreased range of motion is noted.] Extremities: [No clubbing, cyanosis noted.] [ No edema noted.] [Upper extremity pulses 2+.] [Lower extremity pulses 2+.] [Capillary refill less than 3 seconds.] Skin: [No unusual lesions or rashes.] [No skin breakdown appreciated.] Neuro: [Awake, alert and oriented 3.] [Moves all extremities well without hemiparesis or paralysis.] [No essential tremor is appreciated.] Result/EKG - Labs CBC & BMP: 07/23/17 04:36 07/23/17 04:36 Lab Results: I have reviewed the past 24 hour labs Labs: Laboratory Results - last 24 hr 07/22/17 07/22/17 07/23/17 10:51 15:41 04:36 WBC 5.1 RBC 2.96 L Hgb 9.1 L 8.9 L 7.7 L Hct 29.9 L 30.6 L 26.0 L MCV 87.8 MCH 26 L MCHC 29.6 L RDW 15.6 Plt Count 207 MPV 11.0 Neut % (Auto) 54.9 Lymph % (Auto) 27.5 [place] % (Auto) 13.3 H Eos % (Auto) 3.1 Baso % (Auto) 1.0 H Neut # (Auto) 2.8 Lymph # (Auto) 1.4 [place] # (Auto) 0.7 Eos # (Auto) 0.2 Baso # (Auto) 0.1 Immature Gran % 0.2 Nucleated RBC % 0.0 Immature Gran # 0.01 Nucleated RBCs # 0.00 Immature Plt Fraction 0.0 Sodium Potassium Chloride Carbon Dioxide Anion Gap BUN Creatinine GFR Calculation BUN/Creatinine Ratio Glucose Calculated Osmolality Calcium Magnesium 07/23/17 04:36 WBC RBC Hgb Hct MCV MCH MCHC RDW Plt Count MPV Neut % (Auto) Lymph % (Auto) [place] % (Auto) Eos % (Auto) Baso % (Auto) Neut # (Auto) Lymph # (Auto) [place] # (Auto) Eos # (Auto) Baso # (Auto) Immature Gran % Nucleated RBC % Immature Gran # Nucleated RBCs # Immature Plt Fraction Sodium 145 Potassium 3.5 Chloride 111 H Carbon Dioxide 27 Anion Gap 10.5 BUN 2 L Creatinine 0.40 L GFR Calculation 111 BUN/Creatinine Ratio 5.00 L Glucose 91 Calculated Osmolality 283.7 Calcium 8.4 L Magnesium 1.9 - EKG EKG results: interpreted by me, sinus rhythm IDusty John Timothy, MD, personally performed the services described in this documentation, ascribed by Peri Ambrocio NP in my presence, and it is both accurate and complete .
[2017-07-23 19:09] LABS: Basophils # 0.1 10*3/uL (0.0-0.2); Basophils % 0.9 % (0.0-0.8); Eosinophils # 0.2 10*3/uL (0.0-0.87); Eosinophils % 3.2 % (0.00-10.9); Hematocrit 27.7 VOL% (35.7-47.0); Hemoglobin 8.3 GM/DL (12.0-16.0); Immature Granulocytes % 0.5 %; Immature Granulocytes Absolute 0.03 #; Lymphocytes # 1.4 10*3/uL (1.4-4.0); Lymphocytes % 20.7 % (21.3-54.2); Mean Corpuscular Hemoglobin 26 PG (27-34); Mean Corpuscular Volume 88.2 FL (87-102); Mean Platelet Volume 11.1 FL (9.6-12.0); Monocytes # 0.7 10*3/uL (0.11-0.8); Monocytes % 10.7 % (1.7-12.7); Neutrophils # 4.2 10*3/uL (1.4-7.4); Platelet Count 243 T/CUMM (130-400); Red Blood Count 3.14 MC/CUMM (3.8-5.5); Red Cell Distribution Width 15.7 % (9.3-17.3); White Blood Count 6.6 T/CUMM (4-12)
[2017-07-24] MEDS: ALBUTEROL/IPRATROPIUM 3 ML NEB RESP TX SCH ×3 (00:35→13:40)
[2017-07-24] MEDS ORDERED: MAGNESIUM CITRATE 300 ML BOTTLE PO ONE (06:00)
--- NOTE | 2017-07-24 06:50 | Family Practice Progress Note ---
Family Practice - PN: Subj Interval history: Patient seen today. Resting well no acute distress good spirits. She is scheduled for a EGD today. We will follow along with GI services. He has not had any chest pain at this time and watch him closely. No further GI bleeding. Her H&H is stable, albeit somewhat low. Not having any difficulty breathing or other constitutional problems at this time Exam (Progress Note) - Constitutional Vitals: Period Temp Pulse Resp BP Sys/Lomeli Pulse Ox Last 24 Hr 97 F-99.5 F 76-96 15-20 119-197/53-86 92-99 Exam: Generally stable no acute distress HEENT neck supple trachea midline Lungs clear Cardiovascular rate is regular no gallop or rub Abdomen soft nondistended Results - Labs CBC & BMP: 07/23/17 18:25 07/23/17 04:36
[2017-07-24] MEDS ORDERED: MAGNESIUM CHLORIDE 64 MG TABLET PO SCH (09:00)
--- NOTE | 2017-07-24 12:14 | History and Physical Update ---
History and Physical Update - History and Physical H&P was reviewed, the patient examined and there: are no changes in the patients condition since last H&P was completed. - Physical Exam Mental Status: alert and oriented Heart: regular rate and rhythm Lung: clear to auscultation Abdomen: within normal limits Vitals: within normal limits
--- NOTE | 2017-07-24 12:38 | Operative Note ---
Date of procedure: 07/24/17 Pre-op diagnosis: GI bleed Procedure: Procedure note: Colonoscopy Physician: Dr. Mando Garcia Brief clinical abstract: 77-year-old female was admitted with recent dark stools and anemia with associated weakness. Her bleeding appears to have subsided. She had upper endoscopy yesterday with no bleeding source identified. Endoscopic findings: After informed consent was obtained, the patient was placed in the left lateral decubitus position. Digital rectal exam was performed with no palpable abnormalities felt. Pediatric videocolonoscope was inserted into the rectum and advanced to the cecum without difficulty. Retroflex view within the cecum was performed back to the level of the hepatic flexure. The endoscope was advanced back to the cecum and on withdrawal colonic mucosa was carefully examined. Bowel prep was of good quality. Withdrawal time was over 6 months duration. There was an approximately 1 cm diameter vascular malformation noted in the base of the cecum which was not bleeding. Distal to this vascular pattern throughout the remainder the colon appeared normal. No polyps or masses were seen. A moderate number of diverticuli were noted in the sigmoid colon. The endoscope was withdrawn in the rectum with retroflex view showing small internal hemorrhoids. The endoscope was removed and patient appeared to tolerate the procedure well. 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 Could probably discharge if tolerating. Would plan small bowel evaluation with PillCam if iron deficient or recurrent bleeding. Anesthesia: MAC Surgeon / Physician: Juancarlos Garcia Estimated blood loss: none Specimens: none sent Condition: stable Disposition: post procedure unit Results - Labs CBC & BMP: 07/23/17 18:25 07/23/17 04:36 Discharge Plan - Discharge Medications No Action Albuterol Sulfate [Proair HFA] 2 puffs INH BID PRN PRN Reason: Shortness Of Breath Magnesium Chloride [Slow Mag] 64 mg PO DAILY #90 tablet Multivit-Min/FA/Lutein/Zeaxant [Icaps Mv Tablet] 1 each PO DAILY Krill/[place]-3/Dha/Epa/Lipids [Krill Oil 300 mg Softgel] 1 each PO DAILY Ascorbic Acid [Vitamin C] 1,000 mg PO DAILY Albuterol/Ipratropium Neb [Duoneb] 3 ml RESP TX RT BID - Follow Up or Referral - Forms/Instructions
--- NOTE | 2017-07-24 12:49 | Anesthesia Post-Op ---
Anesthesia Post OP - Post Ansesthetic Evaluation Patient seen in post op: Yes Resp: within normal limits CV: within normal limits Mental: within normal limits Temp: within normal limits [id number]: within normal limits Nausea and Vomiting: within normal limits Pain: within normal limits
[2017-07-24] MEDS: PANTOPRAZOLE 40 MG TABLET PO SCH (15:26)
[2017-07-24] MEDS: NEBIVOLOL 5 MG TABLET PO SCH (15:26)
[2017-07-24] MEDS: DOCUSATE SODIUM 100 MG CAPSULE PO SCH (15:27)
[2017-07-24 16:14] VITALS: BP 112/62
[2017-07-24] MEDS ORDERED: POTASSIUM CHLORIDE 20 MEQ TABLET PO ONE (16:54)
--- NOTE | 2017-07-24 17:28 | Discharge Summary ---
Hospital Course - Hospital Course Hospital Course: Patient came in with chest discomfort shortness of breath and also had a GI bleed. She was seen by cardiology as well as gastroenterology services. Had a EGD done which revealed distal esophageal stricture secondary to GERD and she did have bougie dilation. Also had a small hiatal hernia and a nonbleeding duodenal vascular malformation. Echocardiogram was done which revealed mildly increased septal wall thickness with an ejection fraction of 65% without segmental wall motion abnormality. Had normal chamber size. It was felt that her tachycardia prior to admission was sinus tachycardia and probably related to her anemia. She is doing fine now wants to go home and will have her follow- up closely on an outpatient basis. She was put on beta-blockers and given appropriate medications from the GI perspective. We will continue these and told her to be careful and take it easy for about a week. She agreed. Discussed this with her as well as her daughter Specialty Discharge - Follow Up or Referrals Follow up with: Andres Yip DO [Primary Care Provider] - 08/23/17 1:45 pm Discharge Plan - Discharge Data Disposition: Disch To Home/Self Care Condition at Discharge: Stable Discharge Diet: advance to your usual diet Activity: increase activity as tolerated Hygiene: no restrictions Weight Bearing at Discharge: weight bear as tolerated Driving: no restrictions Contact your physician if you experience:: Shortness of breath - Discharge Medications New Nebivolol [Bystolic] 2.5 mg PO DAILY #30 tablet Pantoprazole Tab [Protonix Tab] 20 mg PO DAILY PRN #30 tablet PRN Reason: reflux Continue Albuterol Sulfate [Proair HFA] 2 puffs INH BID PRN PRN Reason: Shortness Of Breath Magnesium Chloride [Slow Mag] 64 mg PO DAILY #90 tablet Multivit-Min/FA/Lutein/Zeaxant [Icaps Mv Tablet] 1 each PO DAILY Krill/[place]-3/Dha/Epa/Lipids [Krill Oil 300 mg Softgel] 1 each PO DAILY Ascorbic Acid [Vitamin C] 1,000 mg PO DAILY Albuterol/Ipratropium Neb [Duoneb] 3 ml RESP TX RT BID - Follow Up or Referral Follow Up: Andres Yip DO [Primary Care Provider] - 08/23/17 1:45 pm - Forms/Instructions Additional Discharge Instructions: Please call patients new prescriptions into Pharmacy as it was not listed in chart Exam - Constitutional Vitals: Period Temp Pulse Resp BP Sys/Lomeli Pulse Ox Last 24 Hr 98.1 F-99.5 F 74-95 14-24 102-163/56-053 92-100 Discharge Results Procedures and tests throughout hospitalization: Pending Orders 07/23/17 Occult Blood, Stool Routine Labs on day of discharge: Labs from last 24 hours 07/23/17 18:25 WBC 6.6 RBC 3.14 L Hgb 8.3 L Hct 27.7 L MCV 88.2 MCH 26 L MCHC 30.0 L RDW 15.7 Plt Count 243 MPV 11.1 Neut % (Auto) 64.0 Lymph % (Auto) 20.7 L [place] % (Auto) 10.7 Eos % (Auto) 3.2 Baso % (Auto) 0.9 H Neut # (Auto) 4.2 Lymph # (Auto) 1.4 [place] # (Auto) 0.7 Eos # (Auto) 0.2 Baso # (Auto) 0.1 Immature Gran % 0.5 Nucleated RBC % 0.0 Immature Gran # 0.03 Nucleated RBCs # 0.00 Immature Plt Fraction 0.0 DS: Provider Date of admission: 07/21/17 14:50 Primary care physician: Andres Yip DO Attending physician on admission: Andres Yip DO Consults: 07/21/17 14:52 Consult to Case Mgmt/Social Srvs [CONS] Routine Reason for Case Mgmt/Social Srvs: Discharge Planning 07/21/17 16:08 Consult to Pastoral Services [CONS] Routine Comment: Pastoral Screen: Request Card Mounter Visit 07/21/17 20:28 Consult to Physician [CONS] Routine Comment: Consulting Provider: Juancarlos Garcia Consult to Specialist Group: Gastroenterology When should Consulting Provider be notified: In am Consult Notification Comment: texted to Marla at 0800 on 07/23/17 07/22/17 07:28 Consult to Physician [CONS] Routine Comment: Consulting Provider: Consult to Specialist Group: Cardiology When should Consulting Provider be notified: Now Discharging clinician: Andres Yip DO
--- NOTE | 2017-07-24 19:47 | Cardiology Progress Note ---
Cristóbal Shipman Lesley, KAMILAH, am scribing for, and in the presence of, Raul Montano MD 19:46. Assessment and Plan - Time spent with patient Time spent with patient: Greater than 30 minutes (1) Anemia Status: Acute Assessment and plan: SEE PLAN LISTED BELOW (2) Chest heaviness Status: Resolved Assessment and plan: SEE PLAN LISTED BELOW (3) Lower GI bleed Status: Acute Assessment and plan: SEE PLAN LISTED BELOW (4) Palpitations Status: Resolved Assessment and plan: SEE PLAN LISTED BELOW (5) Hyperlipidemia Status: Chronic Assessment and plan: SEE PLAN LISTED BELOW (6) Hypertension Status: Acute Assessment and plan: SEE PLAN LISTED BELOW Cardiology - PN: Subj Interval history: FIELD SERVICE MANAGER: Dr. Campo SUMMARY: Ms. Candelaria is a 77-year-old with no prior cardiac history. She was admitted to the ER with complaints of shortness of breath, diaphoresis, and chest pain. ER record indicates the medic reports her heart rate was in the 200s upon arrival, no rhythm strip included in chart to document this. Tachycardia is resolved and she is now in sinus rhythm, rate in the 80s. She admits a stress test approximately 10 years ago prior to surgery that she reports was normal. She was found to be anemic, and GI has been consulted. It appears an EGD pending for today. Cardiac risk factors include advanced age, hyperlipidemia, history of smoker (quit in 1998, smoked on and off for 10 years). Consider outpatient stress test, as the patient has remained chest pain-free, no changes on EKG, and troponin negative. 2016: Chronic problems monitored include Hyperlipidemia, Uncontrolled Hypertension, Anemia, and GERD. The patient denies complaints today, she is awaiting C scope. She underwent EGD yesterday with esophageal dilation for stricture secondary to GERD. C-Scope revealed cecal vascular malformation, nonbleeding, sigmoids diverticulosis, internal hemorrhoids. Microcytic hypochromic anemia is stable. Echocardiogram was unremarkable with an EF 65%, mild LV hypertrophy, normal right sided pressures. ROS: no acute distress denies CP, dyspnea IMPRESSION AND PLAN: 1. ANEMIA - monitoring, EGD done with esophageal dilation, C-scope revealed cecal vascular malformation, nonbleeding, sigmoids diverticulosis, internal hemorrhoids. 2. CHEST PAIN -resolved, vital signs stable, no EKG changes, troponin negative. Chest pain not likely cardiac. 3. HYPERLIPIDEMIA -LDL 122, consider statin if not contraindicated, will await evaluation completion. 4. PALPITATIONS - possibly sinus tachycardia, resolved. 5. LOWER GI BLEED - continue to monitor CBC, transfuse PRN, GI managing. 6. HYPERTENSION - uncontrolled, tolerating low dose beta dulce maria, monitor and adjust meds accordingly. Discussed this patient case with TAHIRA Hooker. Chart reviewed and patient seen after endoscopy. The patient see scope revealed some cecal vascular malformations which may be because of her anemia. It appears that her chest pain is noncardiac. If this time she is being prepared for discharge can be follow-up as an outpatient. At this time will follow with the patient on a as needed basis. I do not think any other changes are needed at this time. Her episode of tachycardia resolved was probably associated with her anemia. Exam (Progress Note) - Constitutional Vitals: Period Temp Pulse Resp BP Sys/Lomeli Pulse Ox Last 24 Hr 98.1 F-99.5 F 74-96 16-24 102-163/56-053 92-100 Exam: General: [Appears well with no apparent distress.] [Pleasant and cooperative. ] [Appears comfortable.] HEENT: [PERRL, normocephalic, atraumatic]. [Mucous membranes moist.] [No jaundice noted.] [Conjunctiva moist and clear, sclerae anicteric.] Neck: [No JVD/HJR, no thyromegaly or lymphadenopathy noted.] [ No carotid bruit appreciated.] Cardiac: [Regular rate and rhythm.] [No murmur rub or gallop.] [PMI is nondisplaced.] Lungs: [Clear to auscultation without accessory muscle use to assist the respiratory pattern.] [Oxygen in use via nasal cannula.] Abdomen: [Soft, bowel sounds normoactive.] [Nontender and nondistended.] [No abdominal bruit or thrill noted.] [No masses noted.] Musculoskeletal: [No fluid collection.] [Decreased range of motion is noted.] Extremities: [No clubbing, cyanosis noted.] [ No edema noted.] [Upper extremity pulses 2+.] [Lower extremity pulses 2+.] [Capillary refill less than 3 seconds.] Skin: [No unusual lesions or rashes.] [No skin breakdown appreciated.] Neuro: [Awake, alert and oriented 3.] [Moves all extremities well without hemiparesis or paralysis.] [No essential tremor is appreciated.] Result/EKG - Labs CBC & BMP: 07/23/17 18:25 07/23/17 04:36 Lab Results: I have reviewed the past 24 hour labs Labs: Laboratory Results - last 24 hr 07/23/17 18:25 WBC 6.6 RBC 3.14 L Hgb 8.3 L Hct 27.7 L MCV 88.2 MCH 26 L MCHC 30.0 L RDW 15.7 Plt Count 243 MPV 11.1 Neut % (Auto) 64.0 Lymph % (Auto) 20.7 L [place] % (Auto) 10.7 Eos % (Auto) 3.2 Baso % (Auto) 0.9 H Neut # (Auto) 4.2 Lymph # (Auto) 1.4 [place] # (Auto) 0.7 Eos # (Auto) 0.2 Baso # (Auto) 0.1 Immature Gran % 0.5 Nucleated RBC % 0.0 Immature Gran # 0.03 Nucleated RBCs # 0.00 Immature Plt Fraction 0.0 - EKG EKG results: interpreted by me, sinus rhythm Specialty Discharge - Follow Up or Referrals Follow up with: Andres Yip DO [Primary Care Provider] - 1 Month Dusty Shipman John Timothy, MD, personally performed the services described in this documentation, ascribed by Peri Ambrocio NP in my presence, and it is both accurate and complete [phone] .
== END 2017-07-24 18:35 | disposition home or self-care (01) ==
LOC: N.ED 13:12 → INTOOBSV 14:50 → N.EDINP 14:50 → N.TELEN 15:39
PROVIDERS: ADMIT Family Medicine; ATTEND Family Medicine